=== PATIENT | female | born 1970 | race Caucasian/White ===

== ENCOUNTER 2020-11-30 11:06 | Emergency (ER) | payer OTHER ==
[~2020-11-30] VITALS: Ht 167.6 cm; Wt 102.2 kg
--- NOTE | 2020-11-30 11:38 | PHYS DOC ---
Past History Past Surgical History: Appendectomy, Cholecystectomy, Hysterectomy Adult General Chief Complaint Chief Complaint: ABDOMINAL PAIN HPI HPI Patient is a 49-year-old female complaining of diffuse abdominal pain. Onset was 2 weeks ago and has waxed and waned since onset. Nothing known makes better or worse. Pain is described as crampy and diffuse without any radiation into any extremities. Patient has had prior cholecystectomy, appendectomy and hysterectomy. Eating does not affect pain. No changes in bladder or bowel function. Patient has familial history of colon cancer, states she has had colonoscopy approximately 10 years ago that was grossly unremarkable but is due for repeat colonoscopy at present. No obvious rectal bleeding reported Review of Systems Review of Systems Fourteen body systems of review of systems have been reviewed. See HPI for p ertinent positives and negative responses, other ervin all other systems are negative, non-pertinent or non-contributory Allergies Allergies Allergies Coded Allergies Type Severity Reaction Last Updated Verified Penicillins Allergy Unknown 11/30/20 Yes azithromycin Allergy Unknown 11/30/20 Yes esomeprazole Allergy Unknown 11/30/20 Yes Physical Exam Physical Exam Constitutional: Well developed, well nourished, no acute distress, non-toxic appearance. HENT: Normocephalic, atraumatic, bilateral external ears normal, oropharynx moist, no oral exudates, nose normal. Eyes: PERRLA, EOMI, conjunctiva normal, no discharge. Neck: Normal range of motion, no tenderness, supple, no stridor. Cardiovascular: Heart rate regular, sinus rhythm, no murmurs rubs or gallops Lungs & Thorax: Bilateral breath sounds clear to auscultation Abdomen: Protuberant, bowel sounds normal, soft, epigastric tenderness to palpation grossly tender to palpation without any focal or point tenderness, mild guarding present, no rebound, no masses, no pulsatile masses. Nonsurgical abdomen, no peritoneal signs Skin: Warm, dry, no erythema, no rash. Back: No tenderness, no CVA tenderness. Extremities: No tenderness, no cyanosis, no clubbing, ROM intact, no edema. Neurologic: Alert and oriented X 3, grossly normal motor & sensory function, no focal deficits noted. Psychologic: Affect normal, judgement normal, mood normal. Current Patient Data Vital Signs Vital Signs Date Time Temp Pulse Resp B/P (MAP) Pulse Ox O2 Delivery O2 Flow Rate FiO2 11/30/20 13:59 83 24 112/64 (80) 93 Room Air 11/30/20 13:46 81 24 103/76 (85) 93 Room Air 11/30/20 13:45 20 Room Air 11/30/20 13:16 79 24 126/76 (93) 93 Room Air 11/30/20 12:59 20 Room Air 11/30/20 12:46 79 24 132/92 (105) 92 Room Air 11/30/20 12:17 82 24 149/88 (108) 93 Room Air 11/30/20 11:15 97.9 50 24 122/58 (79) 95 Room Air Lab Results Laboratory Tests Test 11/30/20 11:57 11/30/20 12:05 Urine Collection Type Unknown Urine Color Yellow Urine Clarity Clear Urine pH 5.0 Urine Specific [place] 1.020 Urine Protein Neg Urine Glucose (UA) Neg mg/dL Urine Ketones (Stick) Neg mg/dL Urine Blood Small Urine Nitrite Neg Urine Bilirubin Neg Urine Urobilinogen Dipstick 0.2 mg/dL Urine Leukocyte Esterase Neg Urine RBC Rare /HPF Urine WBC 0 /HPF Urine Squamous Epithelial Cells Occ /LPF Urine Bacteria 0 /HPF White Blood Count 8.7 x10^3/uL Red Blood Count 4.93 x10^6/uL Hemoglobin 14.7 g/dL Hematocrit 44.0 % Mean Corpuscular Volume 89 fL Mean Corpuscular Hemoglobin 30 pg Mean Corpuscular Hemoglobin Concent 34 g/dL Red Cell Distribution Width 13.1 % Platelet Count 182 x10^3/uL Neutrophils (%) (Auto) 57 % Lymphocytes (%) (Auto) 29 % Monocytes (%) (Auto) 10 % Eosinophils (%) (Auto) 4 % Basophils (%) (Auto) 1 % Neutrophils # (Auto) 5.0 x10^3uL Lymphocytes # (Auto) 2.6 x10^3/uL Monocytes # (Auto) 0.8 x10^3/uL Eosinophils # (Auto) 0.3 x10^3/uL Basophils # (Auto) 0.1 x10^3/uL Sodium Level 139 mmol/L Potassium Level 4.1 mmol/L Chloride Level 104 mmol/L Carbon Dioxide Level 25 mmol/L Anion Gap 10 Blood Urea Nitrogen 11 mg/dL Creatinine 0.9 mg/dL Estimated GFR (Cockcroft-Gault) 66.0 BUN/Creatinine Ratio 12 Glucose Level 133 mg/dL Calcium Level 9.4 mg/dL Total Bilirubin 0.5 mg/dL Aspartate Amino Transf (AST/SGOT) 47 U/L Alanine Aminotransferase (ALT/SGPT) 77 U/L Alkaline Phosphatase 100 U/L Troponin I Quantitative < 0.017 ng/mL Total Protein 7.8 g/dL Albumin 4.1 g/dL Albumin/Globulin Ratio 1.1 Lipase 98 U/L Current Medications Medications (Trade) Dose Ordered Sig/Amy Route PRN Reason Start Time Stop Time Status Last Admin Dose Admin Iohexol (Omnipaque 300 Mg/ml) 75 ml 1X ONCE IV 11/30/20 11:45 11/30/20 11:46 DC 11/30/20 11:53 Morphine Sulfate (Morphine 4mg Syringe) 4 mg 1X ONCE IV 11/30/20 12:45 11/30/20 12:54 DC 11/30/20 12:59 Ciprofloxacin (Cipro) 500 mg 1X ONCE PO 11/30/20 13:30 11/30/20 13:39 DC 11/30/20 13:47 Metronidazole (Flagyl) 500 mg 1X ONCE PO 11/30/20 13:30 11/30/20 13:39 DC 11/30/20 13:47 Fentanyl Citrate (Fentanyl 2ml Vial) 50 mcg 1X ONCE IVP 11/30/20 13:30 11/30/20 13:39 DC 11/30/20 13:45 EKG EKG EKG ordered and interpreted by myself 1207 hrs. as sinus rhythm with a rate of 85 bpm, unremarkable intervals, no axis deviation, no acute ischemic abnormalities noted, no STEMI Radiology/Procedures Radiology/Procedures PROCEDURE: CT ABD PELV W/ IV CONTRST ONLY CT STUDY OF THE ABDOMEN AND PELVIS WITH CONTRAST Clinical indications: Epigastric pain which radiates to the right flank. History cholecystectomy. TECHNIQUE: After IV infusion of 75 cc Omnipaque 300, helical CT scanning of the abdomen and pelvis was performed. GI contrast was not administered. This may decrease the sensitivity to detect GI tract pathology. PQRS COMPLIANCE STATEMENT One or more of the following individualized dose reduction techniques were utilized for this study: 1. Automated exposure control 2. Adjustment of the mA and/or kV according to patient size 3. Use of iterative reconstruction technique COMPARISON: None available. FINDINGS: Diffuse fatty infiltration of the liver is seen. The spleen is not enlarged. The pancreas is normal. The gallbladder is surgically absent. No extrahepatic biliary ductal dilatation is seen. No adrenal mass is evident. Both kidneys are normal without hydronephrosis or hydroureter or urinary tract stone. No focal aneurysmal dilatation of the abdominal aorta is seen. No enlarged abdominal or pelvic lymphadenopathy is evident. Urinary bladder wall is smooth. The terminal ileum is unremarkable. The appendix is not visualized but there are no secondary CT findings of appendicitis. Sigmoid diverticulosis is seen without diverticulitis. There is wall thickening of the colon from the splenic flexure on down into the rectosigmoid region which may be secondary to incomplete distention but could be seen with colitis if there are clinical findings of such. No obstructive bowel pattern is evident. No free air or free fluid or mesenteric edema is seen. No lung base consolidation is seen. No lytic process is seen. IMPRESSION: Wall thickening of the colon from the splenic flexure on down into the rectosigmoid region. This may be due to incomplete distention but may be seen with colitis if there are clinical findings of such. Sigmoid diverticulosis without diverticulitis. Diffuse fatty infiltration of the liver. Electronically signed by: Sheldon Ambrose MD (11/30/2020 12:36 PM) [id number] Heart Score C/O Chest Pain: No HEART Score for Chest Pain: HEART Score for Chest Pain Response (Comments) Value History Slighlty/Non-Suspicious 0 ECG Normal 0 Age >45 - < 65 1 Risk Factors 1 or 2 Risk Factors 1 Troponin < Normal Limit 0 Total 2 Risk Factors: Risk Factors: DM, Current or recent (<one month) smoker, HTN, HLP, family history of CAD, obesity. Risk Scores: Risk Factors: DM, Current or recent (<one month) smoker, HTN, HLP, family history of CAD, obesity. Course & Med Decision Making Course & Med Decision Making Afebrile, hemodynamically stable with history concerning for SBO versus colitis versus other. Physical exam nonconcerning for any emergent or surgical intervention Comprehensive work-up obtained with results discussed at length with good understanding by patient and family member present at bedside. I discussed most likely diagnosis of colitis. I discussed that no further ER intervention or admission was indicated at this time. Joint decision was made to treat for infectious causes of colitis with close outpatient follow-up with PCP for reevaluation. Patient to reestablish with GI and have repeat colonoscopy after acute process resolution Patient responded to ER intervention that included IV pain medication and antibiotics. She tolerated metronidazole and Flagyl well without any abnormalities. She will go home with prescription for each medication after extensive discussion on side effects of each Strict return precautions were discussed with good understanding by patient, all questions and concerns patient and family member at bedside had were addressed prior to ER discharge in improved condition Dragon Disclaimer Dragon Disclaimer This electronic medical record was generated, in whole or in part, using a voice recognition dictation system. Departure Departure: Impression: Primary Impression: Colitis Disposition: DC HOME SELF CARE/HOMELESS Condition: IMPROVED Referrals: PCP,UNKNOWN (PCP) Patient Instructions: Colitis Additional Instructions: You have been evaluated in the Emergency Department today for abdominal pain. Your evaluation was not suggestive of any emergent condition requiring medical intervention at this time. However, some abdominal problems make take more time to appear. Therefore, it is important for you to watch for any new symptoms or worsening of your current condition. As discussed, we have diagnosed you with colitis. We recommend you take prescribed antibiotic to completion and follow-up with primary care physician to review symptomology and discuss need for outpatient gastroenterology consultation. As also discussed, you are overdue for your colonoscopy, it would be beneficial to establish them anyways to have this performed per typical cancer screening protocol Return to the Emergency Department if you experience worsening pain, persistent fevers greater than 100.4, recurrent vomiting, blood in vomit, blood in stool, dark tarry stool, chest pain, difficulty breathing, or any other concerning symptoms. Scripts Ciprofloxacin Hcl (CIPROFLOXACIN HCL) 500 Mg Tablet 1 TAB PO BID for Colitis, #14 TAB Prov: DEA DON DO 11/30/20 Metronidazole (FLAGYL) 500 Mg Tablet 1 TAB PO TID for Colitis, #14 TAB Prov: DEA DON DO 11/30/20 DEA DON DO Nov 30, 2020 11:38
[2020-11-30] MEDS ORDERED: IOHEXOL 300 MG/ML 75 ML VIAL. IV ONE (11:45)
--- NOTE | 2020-11-30 12:39 | RAD ---
CT STUDY OF THE ABDOMEN AND PELVIS WITH CONTRAST Clinical indications: Epigastric pain which radiates to the right flank. History cholecystectomy. TECHNIQUE: After IV infusion of 75 cc Omnipaque 300, helical CT scanning of the abdomen and pelvis wa s performed. GI contrast was not administered. This may decrease the sensitivity to detect GI tract p athology. PQRS COMPLIANCE STATEMENT One or more of the following individualized dose reduction techniques were utilized for this study: 1. Automated exposure control 2. Adjustment of the mA and/or kV according to patient size 3. Use of iterative reconstruction technique COMPARISON: None available. FINDINGS: Diffuse fatty infiltration of the liver is seen. The spleen is not enlarged. The pancreas i s normal. The gallbladder is surgically absent. No extrahepatic biliary ductal dilatation is seen. No adrenal mass is evident. Both kidneys are normal without hydronephrosis or hydroureter or urinary tr act stone. No focal aneurysmal dilatation of the abdominal aorta is seen. No enlarged abdominal or pe lvic lymphadenopathy is evident. Urinary bladder wall is smooth. The terminal ileum is unremarkable. The appendix is not visualized but there are no secondary CT findings of appendicitis. Sigmoid divert iculosis is seen without diverticulitis. There is wall thickening of the colon from the splenic flexu re on down into the rectosigmoid region which may be secondary to incomplete distention but could be seen with colitis if there are clinical findings of such. No obstructive bowel pattern is evident. No free air or free fluid or mesenteric edema is seen. No lung base consolidation is seen. No lytic pro cess is seen. IMPRESSION: Wall thickening of the colon from the splenic flexure on down into the rectosigmoid regio n. This may be due to incomplete distention but may be seen with colitis if there are clinical findin gs of such. Sigmoid diverticulosis without diverticulitis. Diffuse fatty infiltration of the liver. Electronically signed by: Sheldon Ambrose MD (11/30/2020 12:36 PM) [id number]
[2020-11-30] MEDS ORDERED: MORPHINE SULFATE 4 MG/ML DISP.SYRIN. IV ONE (12:45)
--- NOTE | 2020-11-30 12:47 | EKG ---
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
[2020-11-30 12:49] LABS: CALCIUM 9.4 mg/dL (8.5-10.1); CREATININE 0.9 mg/dL (0.6-1.0); POTASSIUM 4.1 mmol/L (3.5-5.1)
[2020-11-30 12:54] LABS: BASO # 0.1 x10^3/uL (0.0-0.2); BASO % 1 % (0-3); EOS # 0.3 x10^3/uL (0.0-0.7); EOS % 4 % (0-3); HEMOGLOBIN 14.7 g/dL (12.0-15.5); LYMPH # 2.6 x10^3/uL (1.0-4.8); LYMPH % 29 % (24-48); MEAN CORPUSCULAR HEMOGLOBIN 30 pg (25-35); MEAN CORPUSCULAR HGB CONC 34 g/dL (31-37); MEAN CORPUSCULAR VOLUME 89 fL (79-100); MONO # 0.8 x10^3/uL (0.0-1.1); MONO % 10 % (0-9); NEUT % 57 % (31-73); PLATELET COUNT 182 x10^3/uL (140-400); RED BLOOD COUNT 4.93 x10^6/uL (3.50-5.40); RED CELL DISTRIBUTION WIDTH 13.1 % (11.5-14.5); WHITE BLOOD COUNT 8.7 x10^3/uL (4.0-11.0)
[2020-11-30 12:55] LABS: ALBUMIN 4.1 g/dL (3.4-5.0); ALBUMIN/GLOBULIN RATIO 1.1 (1.0-1.7); TOTAL BILIRUBIN 0.5 mg/dL (0.2-1.0); TOTAL PROTEIN 7.8 g/dL (6.4-8.2)
[2020-11-30 13:05] LABS: BACTERIA,URINE 0 /HPF (0-FEW); BILIRUBIN,URINE NEG (NEG); CLARITY,URINE CLEAR; COLOR,URINE YELLOW; GLUCOSE,URINE NEG (NEG); NITRITE,URINE NEG (NEG); RBC,URINE RARE /HPF (0-2); SQUAMOUS EPITHELIAL CELL,UR OCC /LPF; UROBILINOGEN,URINE 0.2 mg/dL (0.2 mg/dL); WBC,URINE 0 /HPF (0-4)
[2020-11-30] MEDS ORDERED: CIPROFLOXACIN HCL 500 MG TABLET PO ONE (13:30)
[2020-11-30] MEDS ORDERED: metroNIDAZOLE 500 MG TABLET PO ONE (13:30)
[2020-11-30] MEDS ORDERED: METR500T PO (13:39)
[2020-11-30] MEDS ORDERED: CIPR500T2 PO (13:40)
[2020-11-30 13:59] VITALS: BP 112/64
== END 2020-11-30 14:03 | disposition home or self-care (01) ==
LOC: ER 11:06
DX: K52.9 Noninfective gastroenteritis and colitis, unspecified (principal); Z90.89 Acquired absence of other organs; Z90.49 Acquired absence of other specified parts of digestive tract; Z90.710 Acquired absence of both cervix and uterus; Z88.0 Allergy status to penicillin; Z88.1 Allergy status to other antibiotic agents; Z88.8 Allergy status to other drugs, medicaments and biological substances
CPT/HCPCS: 36415; 74177; 80053; 81001; 83690; 84484; 85025; 93005; 96374; 96375; 99285; J2270; J3010; Q9967

== ENCOUNTER 2021-05-05 22:22 | Emergency (ER) | payer OTHER ==
[~2021-05-05] VITALS: Ht 167.6 cm; Wt 221.3 kg
[~2021-05-05 22:22] MED LIST: CIPR500T2 PO; METR500T PO
[2021-05-05] MEDS ORDERED: MORPHINE SULFATE 2 MG/ML DISP.SYRIN. IV ONE (23:30)
[2021-05-05 23:35] LABS: BASO % 1 % (0-3); EOS # 0.1 x10^3/uL (0.0-0.7); EOS % 2 % (0-3); HEMATOCRIT 42.3 % (36.0-47.0); HEMOGLOBIN 14.7 g/dL (12.0-15.5); LYMPH # 1.3 x10^3/uL (1.0-4.8); LYMPH % 22 % (24-48); MEAN CORPUSCULAR HEMOGLOBIN 31 pg (25-35); MEAN CORPUSCULAR HGB CONC 35 g/dL (31-37); MEAN CORPUSCULAR VOLUME 91 fL (79-100); MONO # 0.7 x10^3/uL (0.0-1.1); MONO % 12 % (0-9); NEUT # 3.8 x10^3uL (1.8-7.7); NEUT % 63 % (31-73); PLATELET COUNT 110 x10^3/uL (140-400); RED BLOOD COUNT 4.66 x10^6/uL (3.50-5.40); RED CELL DISTRIBUTION WIDTH 13.5 % (11.5-14.5)
--- NOTE | 2021-05-05 23:36 | RAD ---
PA lateral chest x-rays HISTORY: Shortness of breath, COPD. FINDINGS: Heart size normal. Mediastinal silhouette is normal. No pneumothorax. No pleural effusions. Thin linear discoid atelectasis left lateral lung base. There is right upper lobe opacity silhouetti ng the minor fissure on the AP view less well-visualized the lateral view. Bones are unremarkable. IMPRESSION: Right upper lobe anterior segment opacity silhouetting the minor fissure could represent early lobar pneumonia. Follow-up after treatment is advised to document that this resolves. Electronically signed by: Uriah Armstrong MD (05/05/2021 11:34 PM) [facility]
[2021-05-05 23:43] LABS: CALCIUM 8.4 mg/dL (8.5-10.1); GFR 58.2; POTASSIUM 4.2 mmol/L (3.5-5.1)
[2021-05-05 23:49] LABS: ALBUMIN/GLOBULIN RATIO 1.4 (1.0-1.7); TOTAL BILIRUBIN 0.7 mg/dL (0.2-1.0); TOTAL PROTEIN 6.9 g/dL (6.4-8.2)
[2021-05-06] MEDS ORDERED: ALBUTEROL SULFATE 8GM INHALER. INH ONE (02:30)
[2021-05-06] MEDS ORDERED: LEVO500T8 PO (03:07)
[2021-05-06] MEDS ORDERED: CIPR250S2 PO (03:14)
[2021-05-06 03:34] VITALS: BP 108/43
--- NOTE | 2021-05-06 05:45 | PHYS DOC ---
Past History Past Medical History: Anxiety, Arrhythmia, COPD, Depression, Other Additional Past Medical Histor: PTSD Past Surgical History: No Surgical History Alcohol Use: Occasionally Adult General Chief Complaint Chief Complaint: SHORTNESS OF BREATH HPI HPI Patient is a 50 year old female who presents with shortness of breath and difficulty breathing. She also complains of generalized body ache. She had Covid vaccine administered to her on May 03. Ever since, she has been having this generalized body ache. She has been having shortness of breath for the last 3 days. She does have history of COPD but feels that shortness of breath is just slightly worse. Her just overcame Covid and finally turned -2 days ago. She herself has mild cough but no significant fever. She denies any chest pain. Denies any back or abdominal pain denies any nausea vomiting or diarrhea. Review of Systems Review of Systems Constitutional: Denies fever or chills Eyes: Denies change in visual acuity, redness, or eye pain [] HENT: Denies nasal congestion or sore throat [] Respiratory: Denies cough but does have shortness of breath Cardiovascular: No additional information not addressed in HPI [] GI: Denies abdominal pain, nausea, vomiting, bloody stools or diarrhea [] : Denies dysuria or hematuria [] Musculoskeletal: Denies back pain or joint pain [] Integument: Denies rash or skin lesions [] Neurologic: Denies headache, focal weakness or sensory changes [] Endocrine: Denies polyuria or polydipsia [] All other systems were reviewed and found to be within normal limits, except as documented in this note. Current Medications Current Medications Current Medications Medications (Trade) Dose Ordered Sig/Amy Start Time Stop Time Status Last Admin Dose Admin Albuterol Sulfate (Ventolin Hfa Inhaler) 2 puff 1X ONCE 05/06/21 02:30 05/06/21 02:31 DC 05/06/21 02:30 2 PUFF Levofloxacin/ Dextrose 100 ml @ As Directed STK-MED ONCE 05/06/21 02:34 05/06/21 02:35 DC Morphine Sulfate (Morphine 2mg Syringe) 2 mg 1X ONCE 05/05/21 23:30 05/05/21 23:31 DC 05/05/21 23:39 2 MG Allergies Allergies Allergies Coded Allergies Type Severity Reaction Last Updated Verified Penicillins Allergy Unknown 11/30/20 Yes azithromycin Allergy Unknown 11/30/20 Yes esomeprazole Allergy Unknown 11/30/20 Yes Physical Exam Physical Exam Constitutional: No acute distress, non-toxic appearance. HENT: Normocephalic, atraumatic, bilateral external ears normal, oropharynx moist, no oral exudates Eyes: PERRLA, EOMI, conjunctiva normal, no discharge. [] Neck: Normal range of motion, no tenderness, supple, no stridor. [] Cardiovascular:Heart rate regular rhythm, no murmur Lungs & Thorax: No significant crackles but occasional wheezing noted in both lung alvarado. Abdomen: Bowel sounds normal, soft, no tenderness, no masses, no pulsatile masses. [] Skin: Warm, dry, no erythema, no rash. [] Back: No tenderness, no CVA tenderness. [] Extremities: No tenderness, no cyanosis, no clubbing, ROM intact, no edema. [] Neurologic: Alert and oriented X 3, normal motor function, normal sensory func tion, no focal deficits noted. [] Psychologic: Affect normal, judgement normal, mood normal. [] Current Patient Data Vital Signs Vital Signs Date Time Temp Pulse Resp B/P (MAP) Pulse Ox O2 Delivery O2 Flow Rate FiO2 05/06/21 03:34 100 23 108/43 (64) 93 Room Air 05/05/21 23:56 2.0 05/05/21 22:25 98.5 Lab Results Laboratory Tests Test 05/05/21 23:00 05/05/21 23:05 05/05/21 23:35 SARS-CoV-2 Antigen (Rapid) Positive (NEGATIVE) *A White Blood Count 6.0 x10^3/uL (4.0-11.0) Red Blood Count 4.66 x10^6/uL (3.50-5.40) Hemoglobin 14.7 g/dL (12.0-15.5) Hematocrit 42.3 % (36.0-47.0) Mean Corpuscular Volume 91 fL (79-100) Mean Corpuscular Hemoglobin 31 pg (25-35) Mean Corpuscular Hemoglobin Concent 35 g/dL (31-37) Red Cell Distribution Width 13.5 % (11.5-14.5) Platelet Count 110 x10^3/uL (140-400) L Neutrophils (%) (Auto) 63 % (31-73) Lymphocytes (%) (Auto) 22 % (24-48) L Monocytes (%) (Auto) 12 % (0-9) H Eosinophils (%) (Auto) 2 % (0-3) Basophils (%) (Auto) 1 % (0-3) Neutrophils # (Auto) 3.8 x10^3uL (1.8-7.7) Lymphocytes # (Auto) 1.3 x10^3/uL (1.0-4.8) Monocytes # (Auto) 0.7 x10^3/uL (0.0-1.1) Eosinophils # (Auto) 0.1 x10^3/uL (0.0-0.7) Basophils # (Auto) 0.0 x10^3/uL (0.0-0.2) Sodium Level 141 mmol/L (136-145) Potassium Level 4.2 mmol/L (3.5-5.1) Chloride Level 103 mmol/L (98-107) Carbon Dioxide Level 30 mmol/L (21-32) Anion Gap 8 (6-14) Blood Urea Nitrogen 11 mg/dL (7-20) Creatinine 1.0 mg/dL (0.6-1.0) Estimated GFR (Cockcroft-Gault) 58.2 BUN/Creatinine Ratio 11 (6-20) Glucose Level 140 mg/dL (70-99) H Calcium Level 8.4 mg/dL (8.5-10.1) L Total Bilirubin 0.7 mg/dL (0.2-1.0) Aspartate Amino Transferase (AST) 80 U/L (15-37) H Alanine Aminotransferase (ALT) 92 U/L (14-59) H Alkaline Phosphatase 147 U/L (46-116) H Troponin I Quantitative < 0.017 ng/mL (0-0.055) Total Protein 6.9 g/dL (6.4-8.2) Albumin 4.0 g/dL (3.4-5.0) Albumin/Globulin Ratio 1.4 (1.0-1.7) D-Dimer (Amy) 0.43 mg/L (0.00-0.50) EKG EKG Normal sinus rhythm at 99 bpm without any acute ST segment abnormalities or arrhythmias and as interpreted by me [] Radiology/Procedures Radiology/Procedures [] Impressions: Chest x-ray as interpreted by radiologist showed right upper lobe anterior segment opacity representing likely lobar pneumonia. Heart Score C/O Chest Pain: No Risk Factors: Risk Factors: DM, Current or recent (<one month) smoker, HTN, HLP, family history of CAD, obesity. Risk Scores: Risk Factors: DM, Current or recent (<one month) smoker, HTN, HLP, family history of CAD, obesity. Course & Med Decision Making Course & Med Decision Making Patient had presented with shortness of breath with above described history whe re she has both COPD but also exposure to Covid. I did order Covid test which was positive while she was in the emergency department. Her laboratory studies with exception of mildly elevated liver function tests, were unremarkable including negative D-dimer. I counseled patient that in view of her COPD, being hypoxic initially at 91 to 92% and having lobar pneumonia, she should be admitted to the hospital. Patient states that she normally lives at approximately 91% and does not feel she is hypoxic. She is able to breathe comfortably and is adamant that she is going to return home. She has a physician Dr. Low toney is primary care and Dr. Posada a medicare biller at [facility] in [place]. She wants to call them tomorrow morning and determine if she needs to be hospitalized. Again I have offered to arrange for transfer or admission to this facility, however patient refuses to stay in the emergency department and signed out AGAINST MEDICAL ADVICE with full understanding of her risk. She was given a dose of Levaquin intravenously prior to discharge and has been given 6 prescription for Cipro twice a day. Again she is to call her physician tomorrow morning and be sure to be seen to ensure that her Covid and pneumonia are not getting worse. Lexie Disclaimer Dragmac Disclaimer This electronic medical record was generated, in whole or in part, using a voice recognition dictation system. Departure Departure: Impression: Primary Impression: Pneumonia Additional Impression: COVID-19 Disposition: LEFT AGAINST MEDICAL ADVICE Condition: STABLE Patient Instructions: Pneumonia, Adult Additional Instructions: You have COVID and with your history of COPD, you are at high risk. We recommended that you get admitted but you have declined with full understanding of your risks. Scripts Ciprofloxacin (CIPRO) 250 Mg/5 Ml [facility]..rec 1 TAB PO BID for 10 Days, #20 TAB 0 Refills Prov: SHAE WILDER MD 05/06/21 Problem Qualifiers Primary Impression: Pneumonia Pneumonia type: due to unspecified organism Laterality: right Lung location: upper lobe of lung Qualified Codes: J18.9 - Pneumonia, unspecified organism SHAE WILDER MD May 06, 2021 05:45
--- NOTE | 2021-05-06 06:38 | EKG ---
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
== END 2021-05-06 03:48 | disposition left against medical advice (07) ==
LOC: ER 22:22
DX: U07.1 COVID-19 (principal); J18.9 Pneumonia, unspecified organism; J44.9 Chronic obstructive pulmonary disease, unspecified; F43.10 Post-traumatic stress disorder, unspecified; Z88.0 Allergy status to penicillin; Z88.1 Allergy status to other antibiotic agents; Z88.8 Allergy status to other drugs, medicaments and biological substances
CPT/HCPCS: 36415; 71046; 80053; 84484; 85025; 85379; 87426; 93005; 94640; 96365; 96375; 99285; J1956; J2270; U0003; 94664